=== PATIENT | female | born 1995 | race Caucasian/White ===

== ENCOUNTER 2017-03-05 00:43 | Emergency (ER) | payer OTHER ==
--- NOTE | 2017-03-05 03:51 | ED ORDER SUMMARY ---
..... Patient: LULA CABEZAS OrderSheet [facility] VisitID: [id number] [address] [place] [address] 21y, F Registration Date/Time: 03/05/2017 ORDER SHEET Weight: 77.1 kg Allergies: No Known Drug Allergy GENERAL ORDERS: Chest 2V Urgent (03:36 03/05/2017 Heather MARIO) (3:40 RFay) MEDICATION ORDERS: IV FLUIDS: ORDER SHEET NOTES: [Electronically signed by Tangela Nava R.N. (03:56 03/05/2017)] [Electronically signed by Lawson Moy MD (22:07 03/08/2017)] [Electronically locked/signed by Tangela Nava R.N. (03:56 03/05/2017)]
--- NOTE | 2017-03-05 03:51 | ED ORDER SUMMARY ---
..... Patient: LULA CABEZAS OrderSheet [facility] VisitID: [id number] [address] [place] [address] 21y, F Registration Date/Time: 03/05/2017 ORDER SHEET Weight: 77.1 kg Allergies: No Known Drug Allergy GENERAL ORDERS: Chest 2V Urgent (03:36 03/05/2017 Heather MARIO) (3:40 RFay) MEDICATION ORDERS: IV FLUIDS: ORDER SHEET NOTES: [Electronically signed by Tangela Nava R.N. (03:56 03/05/2017)] [Electronically signed by Lawson Moy MD (22:07 03/08/2017)] [Electronically locked/signed by Tangela Nava R.N. (03:56 03/05/2017)]
--- NOTE | 2017-03-05 03:51 | ED CLINICAL REPORT ---
Clinical Report - Physicians/Mid Levels [facility] [address] [place] [address] 03/05/2017 0:45 [id number] Time Seen: 02:01 Mar 05 2017. Arrived- By private vehicle. Historian- patient. CPT: ER phys charges level 3 (#[id number]). HISTORY OF PRESENT ILLNESS Chief Complaint: COUGH. 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 and is still present. The illness is described as moderate. The patient has had a cough, chest discomfort, nasal congestion, fever and chills. She has had moderate amounts of yellow, green sputum. No muscle aches, sinus pressure, sinus drainage or ear pain. Additional history - No known contact with a sick individual. Similar symptoms previously: None. Recent medical care: Not recently seen/assessed. REVIEW OF SYSTEMS No nausea, vomiting, diarrhea, abdominal pain or abnormal bleeding. No pedal edema, calf pain, difficulty with urination, skin rash or enlarged lymph nodes. No joint pain. Denies current . All systems otherwise negative, except as recorded above. PAST HISTORY Knee Injury. No history of asthma, pneumonia, heart disease or lung disease. Medications: None. Allergies: No Known Drug Allergy. SOCIAL HISTORY Never smoker. History of drug use: marijuana. No alcohol use. ADDITIONAL NOTES The nursing notes have been reviewed. PHYSICAL EXAM Vital Signs: 03/05/2017 00:55 BP: 133/96. HR: 77. RR: 16. O2 saturation: 100%. Temp: 98.6 F. Pain level now: 6/10. Appearance: Alert. Appears to be in pain. Patient in moderate distress. Eyes: Pupils equal, round and reactive to light. Eyes normal inspection. ENT: Pharynx normal. Neck: Normal inspection. Neck supple. CVS: Normal heart rate and rhythm. Heart sounds normal. Respiratory: No respiratory distress. Breath sounds normal. Abdomen: Soft and nontender. Back: (left sciatic pain , left buttocks.). Skin: Skin warm. Normal skin color. No rash. Extremities: Extremities exhibit normal ROM. Neuro: Oriented X 3. No motor deficit. No sensory deficit. Reflexes normal. LABS, X-RAYS, AND EKG Chest X-ray: Normal Chest X-Ray. PROGRESS AND PROCEDURES Patient/family counseled. Disposition: Discharged. Condition: stable. CLINICAL IMPRESSION Acute dyspnea Acute bacterial mucopurulent bronchitis. Acute cough. INSTRUCTIONS No strenuous activity. Drink plenty of fluids. Warnings: Further evaluation is necessary. GENERAL WARNINGS: Return or contact your physician immediately if your condition worsens or changes unexpectedly, if not improving as expected, or if other problems arise. Prescription Medications: Albuterol HFA oral inhaler: inhale 1-2 puffs via spacer every 4 hours for 1 week, as needed for difficulty breathing, until symptoms improve. Dispense one (1) unit. No refill. Zithromax 250 mg tablets: take 2 orally today, followed by 1 daily for the next 4 days. No refills. Substitution is permissible. OTC Medications: Acetaminophen (available over the counter): take according to label instructions. Follow-up: Follow up with your doctor in one week. Call for an appointment. Understanding of the discharge instructions verbalized by patient and parent. (Electronically signed by Lawson Moy MD 03/08/2017 22:07)
--- NOTE | 2017-03-05 03:51 | ED NURSING NOTES ---
Clinical Report - Nurses [facility] [address] [place] [address] 03/05/2017 0:45 Patient: LULA CABEZAS TRIAGE Triage time 00:55. Acuity: LEVEL 3. Chief Complaint: COUGH. --01:00 TonandraB, R.N. 00:55 03/05/17. BP: 133/96. HR: 77. RR: 16. O2 saturation: 100%. Temp: 98.6 F. Pain level now: 03/25. --01:00 TangelaB, R.N. Weight: 77.1 kg. Height/Length: 67 inches. BMI: 26.6. Growth Chart Percentile: Weight: 92%. Height/Length: 85.4%. --01:00 TangelaB R.N. Medications None. --00:59 TangelaB, R.N. Allergies No Known Drug Allergy. --00:59 TangelaB, R.N. History Arrived by private vehicle. Historian: patient. Accompanied by family. ( pt complains of cough and heaviness in her chest for one week). Onset. (1 weeks). She has had a nasal discharge. 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 (OTC cough and cold medication). PAST MEDICAL HX: Immunizations: up-to-date. SOCIAL HX: Never smoker. History of drug use: marijuana. Recently used drugs days ago. No alcohol use. No infectious disease exposure. SELF HARM ASSESSMENT: A self harm assessment was performed. The patient answered "no" to the question "Have you recently felt down, depressed, or hopeless?", "Have you noticed less interest or pleasure in doing things?", "Do you have thoughts of harming or killing yourself?", "Are you here because you tried to hurt yourself?", "Have you ever tried to hurt yourself before today?", "Have you recently had thoughts about harming or killing others?" and "Do you have any dangerous items in your possession?". FALL RISK ASSESSMENT: Fall risk assessment completed. No fall risk identified. NUTRITIONAL RISK ASSESSMENT: The nutritional risk assessment revealed no deficiencies. FUNCTIONAL ASSESSMENT: Functional assessment: no impairments noted. LEARNING NEEDS ASSESSMENT: The learning needs assessment revealed no barriers. ABUSE ASSESSMENT: Abuse assessment: The patient was asked "Do you feel safe in your home?". SKIN INTEGRITY ASSESSMENT: Skin integrity risk assessment completed. No skin integrity risk identified. --01:00 Nancy RJackyN. PROBLEMS: Knee Injury. --00:59 Nancy R.N. ADDITIONAL SURGERIES: Tonsillectomy. --00:59 Nancy R.N. Interventions ID band on patient. To treatment room. --01:00 Doroteo CruzN. PHYSICAL ASSESSMENT Ambulatory to room. GENERAL / NEURO / PSYCH: Alert. Oriented X 4. Appears in no acute distress. HEENT: Pupils equal, round and reactive to light. Ears within normal limits. Nares within normal limits. Mouth within normal limits upon inspection. Voice within normal limits. Mucous membranes are pink. RESPIRATORY: Respirations not labored. Breath sounds within normal limits. CVS: Normal sinus rhythm noted. Capillary refill less than 2 seconds. SKIN: Skin is warm and dry. Normal skin turgor. --01:00 Nancy R.N. NURSING PROGRESS NOTES Patient identifiers checked. Call light placed in reach. Side rails up. Bed placed in lowest position. Brakes of bed on. --01:00 Nancy R.N. DISPOSITION / DISCHARGE Departure time: 03:56. Condition at departure: improved. No learning barriers present. Discharge instructions provided and reviewed with the patient. Reviewed medication(s) side effects, precautions, dosing and course information. Prescription(s) given to the patient. Patient verbalized understanding. Written instructions provided in Kenyan. No warning instructions, treatment instructions, referrals given to the patient, diet instructions or activity restrictions. No note given, follow up contact number given or stop smoking instructions. The patient was discharged by the physician. She was discharged home and accompanied by family. She left the Emergency Department ambulatory and via private vehicle. Family member driving. FALL RISK ASSESSMENT: Fall risk assessment completed. No fall risk identified. --03:56 Nancy R.N. 03:55 03/05/17. BP: 128/76. HR: 78. RR: 18. O2 saturation: 99%. Temp: deferred. Pain level now: 0/10. --03:56 Royal Cruz Locked/Released at 03/05/2017 3:56 by Royal Cruz
--- NOTE | 2017-03-05 03:51 | ED CLINICAL REPORT ---
Clinical Report - Physicians/Mid Levels [facility] [address] [place] [address] 03/05/2017 0:45 [id number] Time Seen: 02:01 Mar 05 2017. Arrived- By private vehicle. Historian- patient. CPT: ER phys charges level 3 (#[id number]). HISTORY OF PRESENT ILLNESS Chief Complaint: COUGH. 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 and is still present. The illness is described as moderate. The patient has had a cough, chest discomfort, nasal congestion, fever and chills. She has had moderate amounts of yellow, green sputum. No muscle aches, sinus pressure, sinus drainage or ear pain. Additional history - No known contact with a sick individual. Similar symptoms previously: None. Recent medical care: Not recently seen/assessed. REVIEW OF SYSTEMS No nausea, vomiting, diarrhea, abdominal pain or abnormal bleeding. No pedal edema, calf pain, difficulty with urination, skin rash or enlarged lymph nodes. No joint pain. Denies current . All systems otherwise negative, except as recorded above. PAST HISTORY Knee Injury. No history of asthma, pneumonia, heart disease or lung disease. Medications: None. Allergies: No Known Drug Allergy. SOCIAL HISTORY Never smoker. History of drug use: marijuana. No alcohol use. ADDITIONAL NOTES The nursing notes have been reviewed. PHYSICAL EXAM Vital Signs: 03/05/2017 00:55 BP: 133/96. HR: 77. RR: 16. O2 saturation: 100%. Temp: 98.6 F. Pain level now: 6/10. Appearance: Alert. Appears to be in pain. Patient in moderate distress. Eyes: Pupils equal, round and reactive to light. Eyes normal inspection. ENT: Pharynx normal. Neck: Normal inspection. Neck supple. CVS: Normal heart rate and rhythm. Heart sounds normal. Respiratory: No respiratory distress. Breath sounds normal. Abdomen: Soft and nontender. Back: (left sciatic pain , left buttocks.). Skin: Skin warm. Normal skin color. No rash. Extremities: Extremities exhibit normal ROM. Neuro: Oriented X 3. No motor deficit. No sensory deficit. Reflexes normal. LABS, X-RAYS, AND EKG Chest X-ray: Normal Chest X-Ray. PROGRESS AND PROCEDURES Patient/family counseled. Disposition: Discharged. Condition: stable. CLINICAL IMPRESSION Acute dyspnea Acute bacterial mucopurulent bronchitis. Acute cough. INSTRUCTIONS No strenuous activity. Drink plenty of fluids. Warnings: Further evaluation is necessary. GENERAL WARNINGS: Return or contact your physician immediately if your condition worsens or changes unexpectedly, if not improving as expected, or if other problems arise. Prescription Medications: Albuterol HFA oral inhaler: inhale 1-2 puffs via spacer every 4 hours for 1 week, as needed for difficulty breathing, until symptoms improve. Dispense one (1) unit. No refill. Zithromax 250 mg tablets: take 2 orally today, followed by 1 daily for the next 4 days. No refills. Substitution is permissible. OTC Medications: Acetaminophen (available over the counter): take according to label instructions. Follow-up: Follow up with your doctor in one week. Call for an appointment. Understanding of the discharge instructions verbalized by patient and parent. (Electronically signed by Lawson Moy MD 03/08/2017 22:07)
--- NOTE | 2017-03-05 03:51 | ED NURSING NOTES ---
Clinical Report - Nurses [facility] [address] [place] [address] 03/05/2017 0:45 Patient: LULA CABEZAS TRIAGE Triage time 00:55. Acuity: LEVEL 3. Chief Complaint: COUGH. --01:00 TonandraB, R.N. 00:55 03/05/17. BP: 133/96. HR: 77. RR: 16. O2 saturation: 100%. Temp: 98.6 F. Pain level now: 03/25. --01:00 TangelaB, R.N. Weight: 77.1 kg. Height/Length: 67 inches. BMI: 26.6. Growth Chart Percentile: Weight: 92%. Height/Length: 85.4%. --01:00 TangelaB R.N. Medications None. --00:59 TangelaB, R.N. Allergies No Known Drug Allergy. --00:59 TangelaB, R.N. History Arrived by private vehicle. Historian: patient. Accompanied by family. ( pt complains of cough and heaviness in her chest for one week). Onset. (1 weeks). She has had a nasal discharge. 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 (OTC cough and cold medication). PAST MEDICAL HX: Immunizations: up-to-date. SOCIAL HX: Never smoker. History of drug use: marijuana. Recently used drugs days ago. No alcohol use. No infectious disease exposure. SELF HARM ASSESSMENT: A self harm assessment was performed. The patient answered "no" to the question "Have you recently felt down, depressed, or hopeless?", "Have you noticed less interest or pleasure in doing things?", "Do you have thoughts of harming or killing yourself?", "Are you here because you tried to hurt yourself?", "Have you ever tried to hurt yourself before today?", "Have you recently had thoughts about harming or killing others?" and "Do you have any dangerous items in your possession?". FALL RISK ASSESSMENT: Fall risk assessment completed. No fall risk identified. NUTRITIONAL RISK ASSESSMENT: The nutritional risk assessment revealed no deficiencies. FUNCTIONAL ASSESSMENT: Functional assessment: no impairments noted. LEARNING NEEDS ASSESSMENT: The learning needs assessment revealed no barriers. ABUSE ASSESSMENT: Abuse assessment: The patient was asked "Do you feel safe in your home?". SKIN INTEGRITY ASSESSMENT: Skin integrity risk assessment completed. No skin integrity risk identified. --01:00 Nancy RJackyN. PROBLEMS: Knee Injury. --00:59 Nancy R.N. ADDITIONAL SURGERIES: Tonsillectomy. --00:59 Nancy R.N. Interventions ID band on patient. To treatment room. --01:00 Doroteo CruzN. PHYSICAL ASSESSMENT Ambulatory to room. GENERAL / NEURO / PSYCH: Alert. Oriented X 4. Appears in no acute distress. HEENT: Pupils equal, round and reactive to light. Ears within normal limits. Nares within normal limits. Mouth within normal limits upon inspection. Voice within normal limits. Mucous membranes are pink. RESPIRATORY: Respirations not labored. Breath sounds within normal limits. CVS: Normal sinus rhythm noted. Capillary refill less than 2 seconds. SKIN: Skin is warm and dry. Normal skin turgor. --01:00 Nancy R.N. NURSING PROGRESS NOTES Patient identifiers checked. Call light placed in reach. Side rails up. Bed placed in lowest position. Brakes of bed on. --01:00 Nancy R.N. DISPOSITION / DISCHARGE Departure time: 03:56. Condition at departure: improved. No learning barriers present. Discharge instructions provided and reviewed with the patient. Reviewed medication(s) side effects, precautions, dosing and course information. Prescription(s) given to the patient. Patient verbalized understanding. Written instructions provided in Peruvian. No warning instructions, treatment instructions, referrals given to the patient, diet instructions or activity restrictions. No note given, follow up contact number given or stop smoking instructions. The patient was discharged by the physician. She was discharged home and accompanied by family. She left the Emergency Department ambulatory and via private vehicle. Family member driving. FALL RISK ASSESSMENT: Fall risk assessment completed. No fall risk identified. --03:56 Nancy R.N. 03:55 03/05/17. BP: 128/76. HR: 78. RR: 18. O2 saturation: 99%. Temp: deferred. Pain level now: 0/10. --03:56 Royal Cruz Locked/Released at 03/05/2017 3:56 by Royal Cruz
--- NOTE | 2017-03-05 05:21 | DIAGNOSTIC IMAGING REPORT ---
PROCEDURE: XR CHEST 2 VIEW INDICATION: SHORTNESS OF BREATH TECHNIQUE: PA and lateral views. COMPARISON: None. FINDINGS: Allowing for overlying external densities, lung are clear. Heart and mediastinum are normal. Thorax is normal. IMPRESSION: 1. Negative chest.
--- NOTE | 2017-03-08 22:08 | ED MED RECONCILIATION SUMMARY ---
Patient: LULA CABEZAS Medication Reconciliation Report [facility] VisitID: [id number] [address] [place] [address] 21y, F Registration Date/Time: 03/05/2017 Weight: 77.1 kg Height/Length: 67 in. BMI: 26.6 ALLERGIES: No Known Drug Allergy The patient's Home Medications are listed below: NONE. The source(s) of the original Home Medication information: Not obtained. The following Medications were given to the patient in the Emergency Department: None. The following Medications were prescribed to the patient: Acetaminophen (available over the counter): take according to label instructions. -- Lawson Moy MD Albuterol HFA oral inhaler: inhale 1-2 puffs via spacer every 4 hours for 1 week, as needed for difficulty breathing, until symptoms improve. Dispense one (1) unit. No refill. -- Lawson Moy MD Zithromax 250 mg tablets: take 2 orally today, followed by 1 daily for the next 4 days. No refills. Substitution is permissible. -- Lawson Moy MD
--- NOTE | 2017-03-08 22:08 | ED MAR SUMMARY ---
..... Medication Administration Record [facility] [address] [place], [place] [id number] Patient: LULA CABEZAS Visit ID: [id number] 21y, F Weight: 77.1 kg Height/Length: 67 in BMI: 26.6 ALLERGIES: No Known Drug Allergy
--- NOTE | 2017-03-08 22:08 | ED MED RECONCILIATION SUMMARY ---
Patient: LULA CABEZAS Medication Reconciliation Report [facility] VisitID: [id number] [address] [place] [address] 21y, F Registration Date/Time: 03/05/2017 Weight: 77.1 kg Height/Length: 67 in. BMI: 26.6 ALLERGIES: No Known Drug Allergy The patient's Home Medications are listed below: NONE. The source(s) of the original Home Medication information: Not obtained. The following Medications were given to the patient in the Emergency Department: None. The following Medications were prescribed to the patient: Acetaminophen (available over the counter): take according to label instructions. -- Lawson Moy MD Albuterol HFA oral inhaler: inhale 1-2 puffs via spacer every 4 hours for 1 week, as needed for difficulty breathing, until symptoms improve. Dispense one (1) unit. No refill. -- Lawson Moy MD Zithromax 250 mg tablets: take 2 orally today, followed by 1 daily for the next 4 days. No refills. Substitution is permissible. -- Lawson Moy MD
--- NOTE | 2017-03-08 22:08 | ED DISCHARGE INSTRUCTIONS ---
Patient: LULA CABEZAS General Instructions [facility] VisitID: [id number] [place] [address] 21y, F Registration Date/Time: 03/05/2017 Acute dyspnea Acute cough. INSTRUCTIONS No strenuous activity. Drink plenty of fluids. Warnings: Further evaluation is necessary. GENERAL WARNINGS: Return or contact your physician immediately if your condition worsens or changes unexpectedly, if not improving as expected, or if other problems arise. Prescription Medications: Albuterol HFA oral inhaler: inhale 1-2 puffs via spacer every 4 hours for 1 week, as needed for difficulty breathing, until symptoms improve. Dispense one (1) unit. No refill. Zithromax 250 mg tablets: take 2 orally today, followed by 1 daily for the next 4 days. No refills. Substitution is permissible. OTC Medications: Acetaminophen (available over the counter): take according to label instructions. Follow-up: Follow up with your doctor in one week. Call for an appointment. Understanding of the discharge instructions verbalized by patient and parent. ADDITIONAL INFORMATION Dyspnea (Shortness Of Breath) Shortness of Breath (also known as "Dyspnea") is the sense that you can't catch your breath or can't get enough air. Dyspnea can be caused by many different conditions such as: Acute asthma attack Worsening of emphysema (also called "COPD") -- a lung diseasethat is caused by smoking A mucus plug blocks a large air passage in the lung -- this can occur with emphysema or chronic bronchitis Congestive Heart Failure ("CHF") -- when a weak heart muscle allows excess fluid to collect inthe lungs Panic attacks, anxiety -- fear can cause rapid breathing ("hyperventilation") Pneumonia -- infection in the lung tissue Exposure to toxic fumes or smoke Pulmonary embolus (blood clot to the lung) Based on your visit today, the exact cause of your shortness of breath is not certain. Your tests do not show any of the serious causes of dyspnea. Sometimes, further testing is needed to find out if a serious problem exists. Therefore, it is important for you to watch for any new symptoms or worsening of your condition and follow up with your doctor as directed. Home Care: When your symptoms are better, resume your usual activities. If you smoke, you need to stop. Join a stop-smoking program or ask your doctor for help. Follow Up with your doctor or as advised by our staff. Get Prompt Medical Attention if any of the following occur: Increasing shortness of breath or wheezing Redness, pain or swelling in one leg Swelling in both legs or ankles Unexpected weight gain Chest, arm, shoulder, neck or upper back pain Dizziness, weakness or fainting Palpitations (the sense that your heart is fluttering, beating fast or hard) Fever of 100.4F (38C) or higher, or as directed by your healthcare provider Cough with dark colored or bloody sputum (mucus) Bronchitis (Adult: Abx Tx) BRONCHITIS is an infection of the air passages (bronchial tubes). It often occurs during the common cold. Symptoms include cough with mucus (phlegm) and low-grade fever. Bronchitis usually lasts 7-14 days. Mild cases can be treated with simple home remedies. More severe infection is treated with an antibiotic. Home Care: If symptoms are severe, rest at home for the first 2-3 days. When you resume activity, don't let yourself get too tired. Do not smoke. Avoid being exposed to the smoke of others. You may use acetaminophen (Tylenol) or ibuprofen (Motrin, Advil) to control fever or pain, unless another medicine was prescribed for this. [NOTE: If you have chronic liver or kidney disease or ever had a stomach ulcer or GI bleeding, talk with your doctor before using these medicines.] Your appetite may be poor, so a light diet is fine. Avoid dehydration by drinking 6-8 glasses of fluids per day (water, soft, drinks, juices, tea, soup, etc.). Extra fluids will help loosen secretions in the lungs. Zohl-fsq-slbizbq cough medicines that containdextromethorphan(such as Robitussin DM) and decongestants (Actifed or Sudafed) may help relieve cough and congestion. [NOTE: Do not use decongestants if you have high blood pressure.] Finish all antibiotic medicine, even if you are feeling better after only a few days. Follow Up with your doctor or as directed if you dont start to feel better after three days. [NOTE: If you are age 65 or older, or if you have chronic asthma or COPD, we recommend a PNEUMOCOCCAL VACCINATION every five years and a yearly INFLUENZAVACCINATION (FLU-SHOT) every . Ask your doctor about this. If you had an X-ray, a radiologist will review it. You will be notified of any new findings that may affect your care.] Get Prompt Medical Attention if any of the following occur: Fever over 100.4F (38.0C) for more than three days Trouble breathing, wheezing or pain with breathing Coughing up blood or increased amounts of colored sputum Weakness, drowsiness, headache, facial pain, ear pain or a stiff neck Albuterol Sulfate Pressurized inhalation, suspension What is this medicine? ALBUTEROL (al BYOO ter ole) is a bronchodilator. It helps open up the airways in your lungs to make it easier to breathe. This medicine is used to treat and to prevent bronchospasm. How should I use this medicine? This medicine is for inhalation through the mouth. Follow the directions on your prescription label. Take your medicine at regular intervals. Do not use more often than directed. Make sure that you are using your inhaler correctly. Ask you doctor or health care provider if you have any questions. Talk to your paddle dyeing machine operator regarding the use of this medicine in children. Special care may be needed. What side effects may I notice from receiving this medicine? Side effects that you should report to your doctor or health coronary care unit nurse as soon as possible: allergic reactions like skin rash, itching or hives, swelling of the face, lips, or tongue breathing problems chest pain feeling faint or lightheaded, falls high blood pressure irregular heartbeat fever muscle cramps or weakness pain, tingling, numbness in the hands or feet vomiting Side effects that usually do not require medical attention (report to your doctor or health coronary care unit nurse if they continue or are bothersome): cough difficulty sleeping headache nervousness or trembling stomach upset stuffy or runny nose throat irritation unusual taste What may interact with this medicine? anti-infectives like chloroquine and pentamidine caffeine cisapride diuretics medicines for colds medicines for depression or for emotional or psychotic conditions medicines for weight loss including some herbal products methadone some antibiotics like clarithromycin, erythromycin, levofloxacin, and linezolid some heart medicines steroid hormones like dexamethasone, cortisone, hydrocortisone theophylline thyroid hormones What if I miss a dose? If you miss a dose, use it as soon as you can. If it is almost time for your next dose, use only that dose. Do not use double or extra doses. Where should I keep my medicine? Keep out of the reach of children. Store at room temperature between 15 and 30 degrees C (59 and 86 degrees F). The contents are under pressure and may burst when exposed to heat or flame. Do not freeze. This medicine does not work as well if it is too cold. Throw away any unused medicine after the expiration date. Inhalers need to be thrown away after the labeled number of puffs have been used or by the expiration date; whichever comes first. Ventolin HFA should be thrown away 12 months after removing from foil pouch. Check the instructions that come with your medicine. What should I tell my health care provider before I take this medicine? They need to know if you have any of the following conditions: diabetes heart disease or irregular heartbeat high blood pressure pheochromocytoma seizures thyroid disease an unusual or allergic reaction to albuterol, levalbuterol, sulfites, other medicines, foods, dyes, or preservatives or trying to get breast-feeding What should I watch for while using this medicine? Tell your doctor or health coronary care unit nurse if your symptoms do not improve. Do not use extra albuterol. If your asthma or bronchitis gets worse while you are using this medicine, call your doctor right away. If your mouth gets dry try chewing sugarless gum or sucking hard candy. Drink water as directed. You have been given the following additional information: Dyspnea Bronchitis, Antiobiotic Treatment (Adult) Albuterol Sulfate Pressurized inhalation, suspension No strenuous activity. (Electronically signed by Lawson Moy MD 03/08/2017 22:07)
--- NOTE | 2017-03-08 22:08 | ED MAR SUMMARY ---
..... Medication Administration Record [facility] [address], [place] [id number] Patient: LULA CABEZAS Visit ID: [id number] 21y, F Weight: 77.1 kg Height/Length: 67 in BMI: 26.6 ALLERGIES: No Known Drug Allergy
== END 2017-03-05 04:00 | disposition home or self-care (01) ==
LOC: ED SRH 00:43
DX: J20.9 Acute bronchitis, unspecified (principal); R06.00 Dyspnea, unspecified

== ENCOUNTER 2017-03-26 15:09 | Emergency (ER) | payer OTHER ==
--- NOTE | 2017-03-26 16:34 | ED NURSING NOTES ---
Clinical Report - Nurses [facility] [address] [place] [address] 03/26/2017 15:09 Patient: LULA CABEZAS TRIAGE Acuity: LEVEL 3. Chief Complaint: ABDOMINAL PAIN. Alert. No acute distress. --15:26 Kamila Hackett R.N. 15:19 03/26/17. BP: 138/79. HR: 66. RR: 18. O2 saturation: 100%. Temp: 99 F (oral). Pain level now: 05/25. --15:26 Kamila Hackett R.N. Weight: 78.9 kg stated. Height/Length: 67 inches Per Patient. BMI: 27.3. Growth Chart Percentile: Weight: 93.1%. Height/Length: 85.4%. --15:25 Kamila Hackett R.N. Medications None. --15:23 Kamila Hackett R.N. Medication/allergy information source: the patient. --15: Kamila Hackett R.N. Allergies No Known Drug Allergy. --15:23 Kamila Hackett R.N. History Arrived by private vehicle. Historian: patient. Unaccompanied. Primary physician (Vijay). Onset. (2 months ago). Describes the quality as "pain" and cramping. Relates location as in the pelvic area. PAST MEDICAL HX: Last normal menstrual period- 1 years ago. SOCIAL HX: Never smoker. History of occasional drug use: marijuana. No alcohol use. FALL RISK ASSESSMENT: Fall risk assessment completed. No fall risk identified. NUTRITIONAL RISK ASSESSMENT: The nutritional risk assessment revealed no deficiencies. FUNCTIONAL ASSESSMENT: Functional assessment: no impairments noted. LEARNING NEEDS ASSESSMENT: The learning needs assessment revealed no barriers. SKIN INTEGRITY ASSESSMENT: Skin integrity risk assessment completed. No skin integrity risk identified. --15:26 Kamila Hackett R.N. Assessment GENERAL / NEURO / PSYCH: Alert. Oriented X 4. Appears in no acute distress. Chidi Coma Scale: 15- eyes open spontaneously (4); best verbal response- oriented x 4 (5); best motor response- obeys commands (6). Patient appears calm and cooperative. RESPIRATORY: Respirations not labored. --15: Kamila Hackett R.N. Interventions ID band on patient. To treatment room. --15: Kamila Hackett R.N. PHYSICAL ASSESSMENT 15:03/26/17. Ambulatory to room. GENERAL / NEURO / PSYCH: Alert. Oriented X 4. Appears in no acute distress. HEENT: Mucous membranes are pink. RESPIRATORY: Respirations not labored. CVS: Capillary refill less than 2 seconds. GI / : Abdomen soft. SKIN: Skin is warm and dry. --15: Kamila Hackett R.N. NURSING PROGRESS NOTES 15:03/26/17. Patient gowned. Two patient identifiers checked. Checked patient name and birthdate: patient confirmed. Call light placed in reach. Side rails up x 1. Bed placed in lowest position. Brakes of bed on. Patient ready for evaluation- chart flagged and ED physician and PA notified. --15: Kamila Hackett R.N. 15:03/26/17. Checked patient name and birthdate: patient confirmed. Instructions provided to collect clean catch urine and patient verbalized understanding. Clean catch urine collected with return of yellow-colored clear urine; sample sent to lab for urinalysis and HCG. Specimen labeled in the presence of the patient. --15: Kamila Hackett R.N. PELVIC EXAM: Pelvic exam performed by PA. Assisted by one nurse. Preparation: pelvic tray; patient placed in lithotomy position. Procedure: speculum exam. Specimens collected and sent to lab: GC and wet prep. Status post-procedure: she was stable. Total time of assist / procedure: 15 minutes. --17:19 Kamila Hackett R.N. DISPOSITION / DISCHARGE Departure time: 18:52 Mar 26 2017. Condition at departure: improved and stable. No learning barriers present. Reviewed medication(s). Prescription(s) given to the patient. Patient verbalized understanding. Written instructions provided in Luxembourgish. The patient was discharged by the physician trust operations assistant. She was discharged home and accompanied by parent. She left the Emergency Department ambulatory and via private vehicle. Parent driving. --18:53 Kamila Hackett R.N. 18:52 03/26/17. BP: 139/77. HR: 89. RR: 18. O2 saturation: 100%. Temp: 98.2 F (oral). Pain level now: 02/22. --18:53 Kamila Hackett R.N. Locked/Released at 03/26/2017 18:54 by Kamila Hackett R.N.
--- NOTE | 2017-03-26 16:34 | ED NURSING NOTES ---
Clinical Report - Nurses [facility] [address] [place] [address] 03/26/2017 15:09 Patient: LULA CABEZAS TRIAGE Acuity: LEVEL 3. Chief Complaint: ABDOMINAL PAIN. Alert. No acute distress. --15:26 Kamila Hackett R.N. 15:19 03/26/17. BP: 138/79. HR: 66. RR: 18. O2 saturation: 100%. Temp: 99 F (oral). Pain level now: 05/25. --15:26 Kamila Hackett R.N. Weight: 78.9 kg stated. Height/Length: 67 inches Per Patient. BMI: 27.3. Growth Chart Percentile: Weight: 93.1%. Height/Length: 85.4%. --15:25 Kamila Hackett R.N. Medications None. --15:23 Kamila Hackett R.N. Medication/allergy information source: the patient. --15: Kamila Hackett R.N. Allergies No Known Drug Allergy. --15:23 Kamila Hackett R.N. History Arrived by private vehicle. Historian: patient. Unaccompanied. Primary physician (Vijay). Onset. (2 months ago). Describes the quality as "pain" and cramping. Relates location as in the pelvic area. PAST MEDICAL HX: Last normal menstrual period- 1 years ago. SOCIAL HX: Never smoker. History of occasional drug use: marijuana. No alcohol use. FALL RISK ASSESSMENT: Fall risk assessment completed. No fall risk identified. NUTRITIONAL RISK ASSESSMENT: The nutritional risk assessment revealed no deficiencies. FUNCTIONAL ASSESSMENT: Functional assessment: no impairments noted. LEARNING NEEDS ASSESSMENT: The learning needs assessment revealed no barriers. SKIN INTEGRITY ASSESSMENT: Skin integrity risk assessment completed. No skin integrity risk identified. --15:26 Kamila Hackett R.N. Assessment GENERAL / NEURO / PSYCH: Alert. Oriented X 4. Appears in no acute distress. Chidi Coma Scale: 15- eyes open spontaneously (4); best verbal response- oriented x 4 (5); best motor response- obeys commands (6). Patient appears calm and cooperative. RESPIRATORY: Respirations not labored. --15: Kamila Hackett R.N. Interventions ID band on patient. To treatment room. --15: Kamila Hackett R.N. PHYSICAL ASSESSMENT 15:03/26/17. Ambulatory to room. GENERAL / NEURO / PSYCH: Alert. Oriented X 4. Appears in no acute distress. HEENT: Mucous membranes are pink. RESPIRATORY: Respirations not labored. CVS: Capillary refill less than 2 seconds. GI / : Abdomen soft. SKIN: Skin is warm and dry. --15: Kamila Hackett R.N. NURSING PROGRESS NOTES 15:03/26/17. Patient gowned. Two patient identifiers checked. Checked patient name and birthdate: patient confirmed. Call light placed in reach. Side rails up x 1. Bed placed in lowest position. Brakes of bed on. Patient ready for evaluation- chart flagged and ED physician and PA notified. --15: Kamila Hackett R.N. 15:03/26/17. Checked patient name and birthdate: patient confirmed. Instructions provided to collect clean catch urine and patient verbalized understanding. Clean catch urine collected with return of yellow-colored clear urine; sample sent to lab for urinalysis and HCG. Specimen labeled in the presence of the patient. --15: Kamila Hackett R.N. PELVIC EXAM: Pelvic exam performed by PA. Assisted by one nurse. Preparation: pelvic tray; patient placed in lithotomy position. Procedure: speculum exam. Specimens collected and sent to lab: GC and wet prep. Status post-procedure: she was stable. Total time of assist / procedure: 15 minutes. --17:19 Kamila Hackett R.N. DISPOSITION / DISCHARGE Departure time: 18:52 Mar 26 2017. Condition at departure: improved and stable. No learning barriers present. Reviewed medication(s). Prescription(s) given to the patient. Patient verbalized understanding. Written instructions provided in Estonian. The patient was discharged by the physician corporate law assistant. She was discharged home and accompanied by parent. She left the Emergency Department ambulatory and via private vehicle. Parent driving. --18:53 Kamila Hackett R.N. 18:52 03/26/17. BP: 139/77. HR: 89. RR: 18. O2 saturation: 100%. Temp: 98.2 F (oral). Pain level now: 02/22. --18:53 Kamila Hackett R.N. Locked/Released at 03/26/2017 18:54 by Kamila Hackett R.N.
--- NOTE | 2017-03-26 16:34 | ED ORDER SUMMARY ---
..... Patient: LULA CABEZAS OrderSheet [facility] VisitID: [id number] [place] [address] 21y, F Registration Date/Time: 03/26/2017 ORDER SHEET Weight: 78.9 kg (stated) Allergies: No Known Drug Allergy GENERAL ORDERS: UA-Culture if indicated Urgent (15:23 03/26/2017 MWinterer R.N. per protocol) (Ack 15:24 KHoerner) (15:30 MWinterer R.N.) Urine Urgent (15:23 03/26/2017 MWinterer R.N. per protocol) (Ack 15:24 KHoerner) (15:30 MWinterer R.N.) Pelvic Exam Setup (15:37 03/26/2017 EKoroleva P.A.-C) (15:38 MWinterer R.N.) US Pelvic Complete w Transvag Urgent (16:24 03/26/2017 EKoroleva P.A.-C) (Ack 16:26 KHoerner) (18:47 MWinterer R.N.) Wet Prep (Cervix) (c) Urgent (16:53 03/26/2017 EKoroleva P.A.-C) (Ack 16:55 KHoerner) (17:18 MWinterer R.N.) GC/Chlamydia (Cervix) (c) Urgent (16:53 03/26/2017 EKoroleva P.A.-C) (Ack 16:55 KHoerner) (17:18 MWinterer R.N.) MEDICATION ORDERS: IV FLUIDS: ORDER SHEET NOTES: [Electronically signed by Kamila Hackett R.N. (18:54 03/26/2017)] [Electronically signed by Irina Lance P.A.-C (18:58 03/26/2017)] [Electronically locked/signed by Kamila Hackett R.N. (18:54 03/26/2017)]
--- NOTE | 2017-03-26 16:34 | ED ORDER SUMMARY ---
..... Patient: LULA CABEZAS OrderSheet [facility] VisitID: [id number] [place] [address] 21y, F Registration Date/Time: 03/26/2017 ORDER SHEET Weight: 78.9 kg (stated) Allergies: No Known Drug Allergy GENERAL ORDERS: UA-Culture if indicated Urgent (15:23 03/26/2017 MWinterer R.N. per protocol) (Ack 15:24 KHoerner) (15:30 MWinterer R.N.) Urine Urgent (15:23 03/26/2017 MWinterer R.N. per protocol) (Ack 15:24 KHoerner) (15:30 MWinterer R.N.) Pelvic Exam Setup (15:37 03/26/2017 EKoroleva P.A.-C) (15:38 MWinterer R.N.) US Pelvic Complete w Transvag Urgent (16:24 03/26/2017 EKoroleva P.A.-C) (Ack 16:26 KHoerner) (18:47 MWinterer R.N.) Wet Prep (Cervix) (c) Urgent (16:53 03/26/2017 EKoroleva P.A.-C) (Ack 16:55 KHoerner) (17:18 MWinterer R.N.) GC/Chlamydia (Cervix) (c) Urgent (16:53 03/26/2017 EKoroleva P.A.-C) (Ack 16:55 KHoerner) (17:18 MWinterer R.N.) MEDICATION ORDERS: IV FLUIDS: ORDER SHEET NOTES: [Electronically signed by Kamila Hackett R.N. (18:54 03/26/2017)] [Electronically signed by Irina Lance P.A.-C (18:58 03/26/2017)] [Electronically locked/signed by Kamila Hackett R.N. (18:54 03/26/2017)]
--- NOTE | 2017-03-26 16:34 | ED CLINICAL REPORT ---
Clinical Report - Physicians/Mid Levels [facility] [address] [place] [address] 03/26/2017 15:09 Patient: LULA CABEZAS Time Seen: 1525. Arrived- By private vehicle. Historian- patient. HISTORY OF PRESENT ILLNESS Chief Complaint: ABDOMINAL PAIN. This started 2 months and is still present. It is described as "pain" and it is described as located in the pelvic area. No nausea, vomiting or diarrhea. (Patient with abdominal pain over the last 1 month, worsening over the last 3-4 days. Patient reports her pain is lower in nature. Right-sided nature. Patient has had an Implanon. Patient has not had her menses since the Implanon, about 13 months previously. Denies any urgency or frequency.). REVIEW OF SYSTEMS No constipation, difficulty with urination, pain with urination, headache or chest pain. All systems otherwise negative, except as recorded above. SOCIAL HISTORY Never smoker. History of drug use: marijuana. No alcohol use. ADDITIONAL NOTES The nursing notes have been reviewed. PHYSICAL EXAM Vital Signs: 03/26/2017 15:19 BP: 138/79. HR: 66. RR: 18. O2 saturation: 100%. Temp: 99 F. Pain level now: 8/10. Appearance: Alert. Eyes: Eyes normal inspection. ENT: Ears normal. Nose normal. Neck: Normal inspection. CVS: Normal heart rate and rhythm. Heart sounds normal. Respiratory: No respiratory distress. Breath sounds normal. Abdomen: Soft. Tenderness in the suprapubic area. Back: Normal inspection. No CVA tenderness. : Normal external exam. Speculum exam normal. No vaginal bleeding or discharge. Bimanual exam normal. Mild uterine tenderness. Not mild cervical motion tenderness. (chaperoned with Kamila MARIE). Skin: Normal skin color. No rash. Neuro: Oriented X 3. LABS, X-RAYS, AND EKG Laboratory Tests: UA-Culture if indicated: (JOSH: 03/26/2017 15:25) ( MsgRcvd 03/26/2017 15:51) Final results Test Result Flag Units (Reference) URINE COLOR YELLOW URINE APPEARANCE CLEAR URINE GLUCOSE NEGATIVE (NEGATIVE) URINE BILIRUBIN NEGATIVE (NEGATIVE) URINE KETONE NEGATIVE (NEGATIVE) URINE SPECIFIC GRAVITY 1.020 (1.010-1.030) URINE PH 5.5 (5.0-8.0) URINE PROTEIN NEGATIVE (NEGATIVE) URINE UROBILINOGEN 0.2 EU/dL (0.2-1.0) URINE NITRITE NEGATIVE (NEGATIVE) URINE BLOOD NEGATIVE (NEGATIVE) URINE LEUK ESTERASE NEGATIVE (NEGATIVE) URINE RBC NONE SEEN rbc/hpf (0-1) URINE WBC 0-1 wbc/hpf (0-1) URINE EPITHELIAL CELLS 1-3 EPI/hpf (0-5) URINE BACTERIA TRACE (<1+) (NONE SEEN) URINE COMMENT CULT NOT INDICATED 1+ MUCUSURINE CULTURES ARE SET-UP BASED ON THE FOLLOWING CRITERIA:POSITIVE NITRITEPOSITIVE LEUKOCYTE ESTERASEGREATER THAN 10 WHITE BLOOD CELLSMODERATE (2+) OR GREATER BACTERIA Urine: (JOSH: 03/26/2017 15:25) ( [facility] 03/26/2017 15:37) Final results Test Result Flag Units (Reference) URINE NEGATIVE Wet Prep: (JOSH: 03/26/2017 16:15) ( [facility] 03/26/2017 17:08) Final results SPECIMEN DESCRIPTION: C Test Result Flag Units (Reference) WET MOUNT CLUE CELLS:: NONE EPITHELIAL CELLS: FEW -- SOURCE?: CERVIX WHITE BLOOD CELLS: FEW TRICHOMONAS:: NONE -- YEAST:: NONE . Note - Tests: (us: left ovarian cyst with good b/l flow.). PROGRESS AND PROCEDURES Course of Care: non female with no signs of cystitis, with pelvic pain primarily central. No signs of cervical motion tenderness. No signs of , thus ectopic less likely. Ultrasound with signs of a left ovarian cyst, otherwise with bilateral ovarian flow. During the time in the ED, the following DDX were considered: acute surgical abdomen, hemodynamic or metabolic instability, dehydration, gastroenteritis-viral, food borne, or bacterial, food intolerance, irritable or inflammatory bowel, infection, sepsis. 03/26/2017 18:52 BP: 139/77. HR: 89. RR: 18. O2 saturation: 100%. Temp: 98.2 F. Pain level now: 5/10. Patient is stable. Symptoms better. Patient/family counseled. Disposition: Discharged. CLINICAL IMPRESSION Acute pelvic pain. Single left ovarian cyst. INSTRUCTIONS Drink plenty of fluids. Prescription Medications: Ibuprofen 800 mg tablets: take 1 tablet orally every 8 hours for 5 days, as needed for pain. Dispense fifteen (15). No refill. Follow-up with: Rashawn Pinto MD, Obstetrics/Gynecology, , [facility], [address] [place] [address] Follow up. Call for the next available appointment. (Electronically signed by Iirna Lance P.A.-C 03/26/2017 18:58)
--- NOTE | 2017-03-26 16:34 | ED CLINICAL REPORT ---
Clinical Report - Physicians/Mid Levels [facility] [address] [place] [address] 03/26/2017 15:09 Patient: LULA CABEZAS Time Seen: 1525. Arrived- By private vehicle. Historian- patient. HISTORY OF PRESENT ILLNESS Chief Complaint: ABDOMINAL PAIN. This started 2 months and is still present. It is described as "pain" and it is described as located in the pelvic area. No nausea, vomiting or diarrhea. (Patient with abdominal pain over the last 1 month, worsening over the last 3-4 days. Patient reports her pain is lower in nature. Right-sided nature. Patient has had an Implanon. Patient has not had her menses since the Implanon, about 13 months previously. Denies any urgency or frequency.). REVIEW OF SYSTEMS No constipation, difficulty with urination, pain with urination, headache or chest pain. All systems otherwise negative, except as recorded above. SOCIAL HISTORY Never smoker. History of drug use: marijuana. No alcohol use. ADDITIONAL NOTES The nursing notes have been reviewed. PHYSICAL EXAM Vital Signs: 03/26/2017 15:19 BP: 138/79. HR: 66. RR: 18. O2 saturation: 100%. Temp: 99 F. Pain level now: 8/10. Appearance: Alert. Eyes: Eyes normal inspection. ENT: Ears normal. Nose normal. Neck: Normal inspection. CVS: Normal heart rate and rhythm. Heart sounds normal. Respiratory: No respiratory distress. Breath sounds normal. Abdomen: Soft. Tenderness in the suprapubic area. Back: Normal inspection. No CVA tenderness. : Normal external exam. Speculum exam normal. No vaginal bleeding or discharge. Bimanual exam normal. Mild uterine tenderness. Not mild cervical motion tenderness. (chaperoned with Kamila MARIE). Skin: Normal skin color. No rash. Neuro: Oriented X 3. LABS, X-RAYS, AND EKG Laboratory Tests: UA-Culture if indicated: (JOSH: 03/26/2017 15:25) ( MsgRcvd 03/26/2017 15:51) Final results Test Result Flag Units (Reference) URINE COLOR YELLOW URINE APPEARANCE CLEAR URINE GLUCOSE NEGATIVE (NEGATIVE) URINE BILIRUBIN NEGATIVE (NEGATIVE) URINE KETONE NEGATIVE (NEGATIVE) URINE SPECIFIC GRAVITY 1.020 (1.010-1.030) URINE PH 5.5 (5.0-8.0) URINE PROTEIN NEGATIVE (NEGATIVE) URINE UROBILINOGEN 0.2 EU/dL (0.2-1.0) URINE NITRITE NEGATIVE (NEGATIVE) URINE BLOOD NEGATIVE (NEGATIVE) URINE LEUK ESTERASE NEGATIVE (NEGATIVE) URINE RBC NONE SEEN rbc/hpf (0-1) URINE WBC 0-1 wbc/hpf (0-1) URINE EPITHELIAL CELLS 1-3 EPI/hpf (0-5) URINE BACTERIA TRACE (<1+) (NONE SEEN) URINE COMMENT CULT NOT INDICATED 1+ MUCUSURINE CULTURES ARE SET-UP BASED ON THE FOLLOWING CRITERIA:POSITIVE NITRITEPOSITIVE LEUKOCYTE ESTERASEGREATER THAN 10 WHITE BLOOD CELLSMODERATE (2+) OR GREATER BACTERIA Urine: (JOSH: 03/26/2017 15:25) ( [facility] 03/26/2017 15:37) Final results Test Result Flag Units (Reference) URINE NEGATIVE Wet Prep: (JOSH: 03/26/2017 16:15) ( [facility] 03/26/2017 17:08) Final results SPECIMEN DESCRIPTION: C Test Result Flag Units (Reference) WET MOUNT CLUE CELLS:: NONE EPITHELIAL CELLS: FEW -- SOURCE?: CERVIX WHITE BLOOD CELLS: FEW TRICHOMONAS:: NONE -- YEAST:: NONE . Note - Tests: (us: left ovarian cyst with good b/l flow.). PROGRESS AND PROCEDURES Course of Care: non female with no signs of cystitis, with pelvic pain primarily central. No signs of cervical motion tenderness. No signs of , thus ectopic less likely. Ultrasound with signs of a left ovarian cyst, otherwise with bilateral ovarian flow. During the time in the ED, the following DDX were considered: acute surgical abdomen, hemodynamic or metabolic instability, dehydration, gastroenteritis-viral, food borne, or bacterial, food intolerance, irritable or inflammatory bowel, infection, sepsis. 03/26/2017 18:52 BP: 139/77. HR: 89. RR: 18. O2 saturation: 100%. Temp: 98.2 F. Pain level now: 5/10. Patient is stable. Symptoms better. Patient/family counseled. Disposition: Discharged. CLINICAL IMPRESSION Acute pelvic pain. Single left ovarian cyst. INSTRUCTIONS Drink plenty of fluids. Prescription Medications: Ibuprofen 800 mg tablets: take 1 tablet orally every 8 hours for 5 days, as needed for pain. Dispense fifteen (15). No refill. Follow-up with: Rashawn Pinto MD, Obstetrics/Gynecology, , [facility], [address] [place] [address] Follow up. Call for the next available appointment. (Electronically signed by Irina Lance P.A.-C 03/26/2017 18:58)
--- NOTE | 2017-03-26 18:58 | ED MED RECONCILIATION SUMMARY ---
Patient: LULA CABEZAS Medication Reconciliation Report [facility] VisitID: [id number] [place] [address] 21y, F Registration Date/Time: 03/26/2017 Weight: 78.9 kg Height/Length: 67 in. BMI: 27.3 ALLERGIES: No Known Drug Allergy The patient's Home Medications are listed below: NONE. The source(s) of the original Home Medication information: patient The following Medications were given to the patient in the Emergency Department: None. The following Medications were prescribed to the patient: Ibuprofen 800 mg tablets: take 1 tablet orally every 8 hours for 5 days, as needed for pain. Dispense fifteen (15). No refill. -- Irina Lance P.A.-C
--- NOTE | 2017-03-26 18:58 | ED DISCHARGE INSTRUCTIONS ---
Patient: LULA CABEZAS General Instructions [facility] VisitID: [id number] [place] [id number] 21y, F Registration Date/Time: 03/26/2017 Acute pelvic pain. Single left ovarian cyst. INSTRUCTIONS Drink plenty of fluids. Prescription Medications: Ibuprofen 800 mg tablets: take 1 tablet orally every 8 hours for 5 days, as needed for pain. Dispense fifteen (15). No refill. Follow-up with: Rashawn Pinto MD, Obstetrics/Gynecology, , [facility], [address] [place] [address] Follow up. Call for the next available appointment. ADDITIONAL INFORMATION Ovarian Cyst The ovary is a small organ located on each side of the uterus. During each menstrual cycle a tiny egg sac forms in the ovary. If the egg is released but does not occur, this sac usually dissolves. Sometimes, the sac may fill with fluid. It then enlarges into a painful cyst. Usually the cyst will rupture or shrink on its own. In either case, the pain gradually goes away over the next 1-3 days. If the cyst does not shrink or rupture, it may cause continued pain. Home Care: Rest in bed and avoid heavy exertion until you are feeling better. Heat to the lower abdomen usually helps (heating pad or hot packs -- a small towel soaked in hot water). You may use acetaminophen (Tylenol) or ibuprofen (Motrin, Advil) to control pain, unless another pain medicine was prescribed. [NOTE: If you have chronic liver or kidney disease or ever had a stomach ulcer or GI bleeding, talk with your doctor before using these medicines.] Follow Up: See your doctor within the next 2-3 days if your pain doesnt improve. Otherwise, follow up with your doctor after your next period or as directed by our staff. Get Prompt Medical Attention if any of the following occur: Pain worsens or fails to respond to the above measures Fever of 100.4F (38C) or higher, or as directed by your healthcare provider Heavy vaginal bleeding (soaking one pad an hour for three hours) You feel weak or dizzy Fainting Passage of a pink or day tissue with menstrual bleeding Pelvic Pain, Uncertain Cause Based on your visit today, the exact cause of your pelvic pain is not certain. But your condition does not appear to be serious at this time. However, the signs of a serious problem may take more time to appear. Therefore, it is important for you to watch for any new symptoms or worsening of your condition. Home Care: Rest until you are feeling better. Avoid sexual intercourse until your pain goes away. You may use acetaminophen (Tylenol) or ibuprofen (Motrin, Advil) to control pain, unless another medicine was prescribed. [NOTE: If you have chronic liver or kidney disease or ever had a stomach ulcer or GI bleeding, talk with your doctor before using these medicines.] Follow Up with your doctor as advised. If a culture test was taken, call in two days for the results. If the culture is positive, you will be given more advice at that time. Otherwise, follow-up with your doctor or this facility as instructed. Get Prompt Medical Attention if any of the following occur: Fever of 100.4F (38C) or higher, or as directed by your healthcare provider Vaginal discharge Worsening pain Weakness, dizziness or fainting Unexpected vaginal bleeding or passage of day or white tissue from the vagina Pain that moves to the right lower abdomen You have been given the following additional information: Ovarian Cyst Pelvic Pain, Unknown Cause (Electronically signed by Irina Lance P.A.-C 03/26/2017 18:58)
--- NOTE | 2017-03-26 18:58 | ED DISCHARGE INSTRUCTIONS ---
Patient: LULA CABEZAS General Instructions [facility] VisitID: [id number] [place] [id number] 21y, F Registration Date/Time: 03/26/2017 Acute pelvic pain. Single left ovarian cyst. INSTRUCTIONS Drink plenty of fluids. Prescription Medications: Ibuprofen 800 mg tablets: take 1 tablet orally every 8 hours for 5 days, as needed for pain. Dispense fifteen (15). No refill. Follow-up with: Rashawn Pinto MD, Obstetrics/Gynecology, , [facility], [address] [place] [address] Follow up. Call for the next available appointment. ADDITIONAL INFORMATION Ovarian Cyst The ovary is a small organ located on each side of the uterus. During each menstrual cycle a tiny egg sac forms in the ovary. If the egg is released but does not occur, this sac usually dissolves. Sometimes, the sac may fill with fluid. It then enlarges into a painful cyst. Usually the cyst will rupture or shrink on its own. In either case, the pain gradually goes away over the next 1-3 days. If the cyst does not shrink or rupture, it may cause continued pain. Home Care: Rest in bed and avoid heavy exertion until you are feeling better. Heat to the lower abdomen usually helps (heating pad or hot packs -- a small towel soaked in hot water). You may use acetaminophen (Tylenol) or ibuprofen (Motrin, Advil) to control pain, unless another pain medicine was prescribed. [NOTE: If you have chronic liver or kidney disease or ever had a stomach ulcer or GI bleeding, talk with your doctor before using these medicines.] Follow Up: See your doctor within the next 2-3 days if your pain doesnt improve. Otherwise, follow up with your doctor after your next period or as directed by our staff. Get Prompt Medical Attention if any of the following occur: Pain worsens or fails to respond to the above measures Fever of 100.4F (38C) or higher, or as directed by your healthcare provider Heavy vaginal bleeding (soaking one pad an hour for three hours) You feel weak or dizzy Fainting Passage of a pink or day tissue with menstrual bleeding Pelvic Pain, Uncertain Cause Based on your visit today, the exact cause of your pelvic pain is not certain. But your condition does not appear to be serious at this time. However, the signs of a serious problem may take more time to appear. Therefore, it is important for you to watch for any new symptoms or worsening of your condition. Home Care: Rest until you are feeling better. Avoid sexual intercourse until your pain goes away. You may use acetaminophen (Tylenol) or ibuprofen (Motrin, Advil) to control pain, unless another medicine was prescribed. [NOTE: If you have chronic liver or kidney disease or ever had a stomach ulcer or GI bleeding, talk with your doctor before using these medicines.] Follow Up with your doctor as advised. If a culture test was taken, call in two days for the results. If the culture is positive, you will be given more advice at that time. Otherwise, follow-up with your doctor or this facility as instructed. Get Prompt Medical Attention if any of the following occur: Fever of 100.4F (38C) or higher, or as directed by your healthcare provider Vaginal discharge Worsening pain Weakness, dizziness or fainting Unexpected vaginal bleeding or passage of day or white tissue from the vagina Pain that moves to the right lower abdomen You have been given the following additional information: Ovarian Cyst Pelvic Pain, Unknown Cause (Electronically signed by Irina Lance P.A.-C 03/26/2017 18:58)
--- NOTE | 2017-03-26 18:58 | ED MAR SUMMARY ---
..... Medication Administration Record [facility] [address] [place], [place] [id number] Patient: LULA CABEZAS Visit ID: [id number] 21y, F Weight: 78.9 kg Height/Length: 67 in BMI: 27.3 ALLERGIES: No Known Drug Allergy
--- NOTE | 2017-03-26 18:58 | ED MAR SUMMARY ---
..... Medication Administration Record [facility] [address] [place], [place] [id number] Patient: LULA CABEZAS Visit ID: [id number] 21y, F Weight: 78.9 kg Height/Length: 67 in BMI: 27.3 ALLERGIES: No Known Drug Allergy
--- NOTE | 2017-03-26 18:58 | ED MED RECONCILIATION SUMMARY ---
Patient: LULA CABEZAS Medication Reconciliation Report [facility] VisitID: [id number] [place] [address] 21y, F Registration Date/Time: 03/26/2017 Weight: 78.9 kg Height/Length: 67 in. BMI: 27.3 ALLERGIES: No Known Drug Allergy The patient's Home Medications are listed below: NONE. The source(s) of the original Home Medication information: patient The following Medications were given to the patient in the Emergency Department: None. The following Medications were prescribed to the patient: Ibuprofen 800 mg tablets: take 1 tablet orally every 8 hours for 5 days, as needed for pain. Dispense fifteen (15). No refill. -- Irina Lance P.A.-C
--- NOTE | 2017-03-26 20:12 | DIAGNOSTIC IMAGING REPORT ---
PROCEDURE: US COMPLETE PELVIC W/TRANSVAG INDICATION: Right pelvic pain. TECHNIQUE: Transabdominal and endovaginal day scale and color Doppler sonographic images of the female pelvis were obtained. COMPARISON: None. FINDINGS: TRANSABDOMINAL SCANS: Uterus is of normal size (8.3 x 3.7 x 3.9 cm). Kidneys are normal. TRANSVAGINAL SCANS: Endometrial thickness is normal (6 mm). Right ovary is normal (2.7 cm). Left ovary is mildly prominent (4.1 cm) secondary to a 3 cm simple cyst. No evidence of free fluid. IMPRESSION: 1. There is a 3.0 cm simple left ovarian cyst (most likely incidental finding). 2. Otherwise negative pelvic ultrasound.
== END 2017-03-26 18:50 | disposition home or self-care (01) ==
LOC: ED SRH 15:09
DX: R10.2 Pelvic and perineal pain (principal); N83.202 Unspecified ovarian cyst, left side
CPT/HCPCS: 90004; 90195; 91227; 91228; 93070